=== PATIENT | female | born 1990 | race African-American/Black ===

== ENCOUNTER 2017-06-26 22:14 | Emergency (ER) | payer OTHER ==
[~2017-06-26] VITALS: Ht 154.9 cm; Wt 54.1 kg
[2017-06-26 22:17] VITALS: TEMP 36.8; Ht 154.9 cm; Wt 54.1 kg
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
[2017-06-26] MEDS ORDERED: KETOROLAC TROMETHAMINE 30 MG/ML VIAL IV STA (23:02)
[2017-06-26] MEDS ORDERED: CALC-20 PO (23:36)
[2017-06-26] MEDS ORDERED: CYAN100T6 PO (23:36)
[2017-06-26] MEDS ORDERED: MYCO500T4 PO ×2 (23:37)
[2017-06-26] MEDS ORDERED: HYDR200T5 PO (23:38)
[2017-06-26] MEDS ORDERED: METH8TAB5 PO (23:38)
[2017-06-26] MEDS ORDERED: IBUPROFEN 200 MG TAB PO STA (23:42)
[2017-06-26 23:50] LABS: BASO % 0.3 %; BASO ABS # 0.01 K/uL (0-0.2); EOS % 0.7 %; EOS ABS # 0.02 K/uL (0-0.5); HEMOGLOBIN 9.6 g/dL (12.0-16.0); IG# 0.01 K/uL (0.00-0.02); LYMPH % 28.4 %; LYMPH ABS # 0.83 K/uL (1.2-3.4); MEAN CELL VOLUME 77.5 fL (80-100); MEAN CORPUSCULAR HEMOGLOBIN 25.7 pg (25-34); MEAN CORPUSCULAR HGB CONC 33.1 g/dl (32-36); MEAN PLATELET VOLUME 10.3 fL (7.4-10.4); MONO % 13.7 %; NEUT % 56.6 %; NEUT ABS # 1.65 K/uL (1.4-6.5); PLATELET COUNT 218 K/uL (130-400); RED CELL DISTRIBUTION WIDTH CV 16.3 % (11.5-14.5); RED CELL DISTRIBUTION WIDTH SD 45.9 fL (36.4-46.3); WHITE BLOOD COUNT 2.92 K/uL (4.8-10.8)
[2017-06-27 00:10] LABS: ALBUMIN 3.2 gm/dl (3.4-5.0); ALT/SGPT 20 U/L (12-78); BLOOD UREA NITROGEN 5 mg/dl (7-18); CALCIUM 8.3 mg/dl (8.5-10.1); CARBON DIOXIDE 29 mmol/L (21-32); CREATININE 0.64 mg/dl (0.60-1.20); GLUCOSE 101 mg/dl (70-99); LIPASE 115 U/L (73-393); POTASSIUM 4.1 mmol/L (3.5-5.1); SODIUM 140 mmol/L (136-145)
[2017-06-27 00:13] LABS: ALKALINE PHOSPHATASE 101 U/L (45-117); AST/SGOT 19 U/L (15-37); TOTAL PROTEIN 6.7 gm/dl (6.4-8.2)
[2017-06-27 00:56] VITALS: BP 109/74; PULSE 62; O2SAT 99
--- NOTE | 2017-06-27 06:38 | DIAGNOSTIC IMAGING REPORT ---
CHEST ONE VIEW PORTABLE CLINICAL HISTORY: Atypical chest pain COMPARISON STUDY: No previous studies for comparison. FINDINGS: The cardiac and mediastinal contours are normal. There is no evidence of focal pulmonary consolidation. There is no evidence of failure. No pleural effusions are visualized.[ IMPRESSION: No active disease in the chest. Electronically signed by: Pete Martino M.D. 06/27/2017 6:37 AM Dictated Date/Time: 06/27/2017 6:36 AM
== END 2017-06-27 00:58 | disposition home or self-care (01) ==
LOC: C.EDB 22:14 → C.EDC 06-27 00:58
DX: R07.2 Precordial pain (principal); M94.0 Chondrocostal junction syndrome [Tietze]; V44.9XXA Unspecified car occupant injured in collision with heavy transport vehicle or bus in traffic accident, initial encounter; Y92.488 Other paved roadways as the place of occurrence of the external cause; M32.9 Systemic lupus erythematosus, unspecified

== ENCOUNTER 2017-12-19 13:16 | Emergency (ER) | payer OTHER ==
[~2017-12-19] VITALS: Ht 154.9 cm; Wt 50.3 kg
[~2017-12-19 13:16] MED LIST: CALC-20 PO; CYAN100T6 PO; HYDR200T5 PO; METH8TAB5 PO; MYCO500T4 PO; POT PHOSPHATE MONOBASIC W/ SOD TAB PO SCH
[2017-12-19 13:17] VITALS: Ht 154.9 cm; Wt 50.3 kg
[2017-12-19] MEDS ORDERED: SODIUM CHLORIDE 0.9% 1000ML 1,000 ML IV STA ×2 (13:46→14:56)
--- NOTE | 2017-12-19 13:54 | EMERGENCY ROOM VISIT NOTE ---
History Report prepared by Maycol: Vadim Montanez Under the Supervision of: Dr. Montserrat Daniels D.O. First contact with patient: 13:35 Chief Complaint: ILLNESS Stated Complaint: LUPUS FLARE History of Present Illness The patient is a 27 year old female who presents to the Emergency Room with complaints of constant generalized pain in her muscles and joints that began yesterday. Patient adds she has been vomiting and nauseas. Patient states she has had 4-5 episodes of vomiting. Past medical history includes Lupus, which she was diagnosed with 4 years ago. Patient states she is concerned about a possible Lupus flare which she states her symptoms feel similar to. She adds she has a history of Lupus flares. Patient states she takes 15mg of Prednisone for her Lupus and states her medication has been changed "up and down" before. She adds that stress can trigger her Lupus flares. She states she follows with Dr. 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 Patient adds she had fevers , chills, and urinary symptoms last week due to a kidney infection. She states these symptoms resolved after a 5-day course of Cipro BID. Patient states she typically takes Aleve for pain relief. Patient states she has a history of rashes on her arms and face. Patient denies a history of blood clots and kidney problems. She denies back pain, bowel symptoms, and hematemesis. Source of History: patient Onset: Yesterday Position: head, chest, arm (bilateral), leg (bilateral) Timing: constant Modifying Factors (Relieving): other (None) Associated Symptoms: + nausea, + vomiting, No fevers, No chills, No back pain, No urinary symptoms Note: Negative hematemesis and bowel symptoms. Review of Systems See HPI for pertinent positives & negatives. A total of 10 systems reviewed and were otherwise negative. Past Medical & Surgical Medical Problems: (1) Lupus (2) Pleurisy Family History Patient reports no known family medical history. Social History Smoking Status: Never Smoker Marital Status: single Occupation Status: student Current/Historical Medications Scheduled Calcium Carbonate-Vitamin D (Calcium 600 + D), 1 TAB PO AMPM Cephalexin (Keflex), 1 CAP PO BID Cyanocobalamin (Vitamin B12 100 Mcg), 100 MCG PO QAM Hydroxychloroquine Sulfate (Plaquenil), 200 MG PO BID Methylprednisolone (Methylprednisolone), 16 MG PO QAM Methylprednisolone (Medrol Dosepak), 1 PKT PO UD Mycophenolate Mofetil (Cellcept), 5 TABS PO QAM Mycophenolate Mofetil (Cellcept), 3 TABS PO HS Allergies Coded Allergies: No Known Allergies (Unverified , 06/26/17) Physical Exam Vital Signs Date Time Temp Pulse Resp B/P (MAP) Pulse Ox O2 Delivery O2 Flow Rate FiO2 12/19/17 18:46 37.1 71 16 97/57 100 12/19/17 17:30 71 16 97/57 100 Room Air 12/19/17 14:40 80 20 138/80 98 Room Air 12/19/17 13:17 37.1 84 18 143/77 99 Room Air Physical Exam GENERAL: alert, well appearing, well nourished, no distress, non-toxic EYE EXAM: normal conjunctiva, PERRL and EOM's grossly intact OROPHARYNX: no exudate, no erythema, lips, buccal mucosa, and tongue normal and mucous membranes are moist NECK: supple, no nuchal rigidity, no adenopathy, non-tender LUNGS: Clear to auscultation. Normal chest wall mechanics. No wheezes, rhonchi, or rales. HEART: no murmurs, S1 normal and S2 normal ABDOMEN: abdomen soft, non-tender, normo-active bowel sounds, no masses, no rebound or guarding. BACK: Back is symmetrical on inspection and there is no deformity, no midline tenderness, no CVA tenderness. SKIN: no malar rash and no bruising UPPER EXTREMITIES: upper extremities are grossly normal. No joint effusions. Full range of motion b/l. LOWER EXTREMITIES: No pitting edema. No joint effusions. Full range of motion b/ l. NEURO EXAM: Normal sensorium, cranial nerves II-XII grossly intact, normal speech, no gross weakness of arms, no gross weakness of legs. Medical Decision & Procedures ER Provider Diagnostic Interpretation: Radiology results have been interpreted by the radiologist and reviewed by me. CHEST ONE VIEW PORTABLE CLINICAL HISTORY: fever/chills dyspnea COMPARISON STUDY: 06/26/2017 FINDINGS: The bones soft tissues and hemidiaphragms are normal. The cardiomediastinal silhouette is normal. The lungs are clear. The pulmonary vasculature is normal. IMPRESSION: Negative chest. The above report was generated using voice recognition software. It may contain grammatical, syntax or spelling errors. Electronically signed by: Monster Edouard M.D. 12/19/2017 2:05 PM EXAMINATION: RENAL ULTRASOUND CLINICAL HISTORY: Left flank pain, urinary tract infection. COMPARISON STUDY: None FINDINGS: The right kidney measures 10.3 cm. The left kidney measures 10.1 cm. There is no evidence of hydronephrosis. There are no renal masses. No bladder masses are visualized. Neither ureteral jet was identified. IMPRESSION : Nonvisualization of the ureteral jets. Otherwise normal renal ultrasound Electronically signed by: Pete Martino M.D. 12/19/2017 6:07 PM Laboratory Results 12/19/17 13:48 Red Blood Count 4.49, Mean Corpuscular Volume 78.0, Mean Corpuscular Hemoglobin 25.8, Mean Corpuscular Hemoglobin Concent 33.1, Mean Platelet Volume 10.6, Neutrophils (%) (Auto) 42.0, Lymphocytes (%) (Auto) 38.5, Monocytes (%) (Auto) 18.3, Eosinophils (%) (Auto) 0.8, Basophils (%) (Auto) 0.0, Neutrophils # (Auto ) 1.10, Lymphocytes # (Auto) 1.01, Monocytes # (Auto) 0.48, Eosinophils # (Auto ) 0.02, Basophils # (Auto) 0.00 12/19/17 13:48 Test 12/19/17 13:48 12/19/17 16:21 White Blood Count 2.62 K/uL (4.8-10.8) Red Blood Count 4.49 M/uL (4.2-5.4) Hemoglobin 11.6 g/dL (12.0-16.0) Hematocrit 35.0 % (37-47) Mean Corpuscular Volume 78.0 fL (80-100) Mean Corpuscular Hemoglobin 25.8 pg (25-34) Mean Corpuscular Hemoglobin Concent 33.1 g/dl (32-36) Platelet Count 208 K/uL (130-400) Mean Platelet Volume 10.6 fL (7.4-10.4) Neutrophils (%) (Auto) 42.0 % Lymphocytes (%) (Auto) 38.5 % Monocytes (%) (Auto) 18.3 % Eosinophils (%) (Auto) 0.8 % Basophils (%) (Auto) 0.0 % Neutrophils # (Auto) 1.10 K/uL (1.4-6.5) Lymphocytes # (Auto) 1.01 K/uL (1.2-3.4) Monocytes # (Auto) 0.48 K/uL (0.11-0.59) Eosinophils # (Auto) 0.02 K/uL (0-0.5) Basophils # (Auto) 0.00 K/uL (0-0.2) RDW Standard Deviation 45.0 fL (36.4-46.3) RDW Coefficient of Variation 15.8 % (11.5-14.5) Immature Granulocyte % (Auto) 0.4 % Immature Granulocyte # (Auto) 0.01 K/uL (0.00-0.02) Nucleated RBC Absolute Count (auto) 0.02 K/uL (0-0) Nucleated Red Blood Cells % 0.8 % Prothrombin Time 10.4 SECONDS (9.0-12.0) Prothromb Time International Ratio 1.0 (0.9-1.1) Anion Gap 7.0 mmol/L (3-11) Est Creatinine Clear Calc Drug Dose 84.6 ml/min Estimated GFR () 125.5 Estimated GFR (Non- 108.3 BUN/Creatinine Ratio 11.3 (10-20) Calcium Level 8.9 mg/dl (8.5-10.1) Phosphorus Level 1.9 mg/dl (2.5-4.9) Magnesium Level 1.8 mg/dl (1.8-2.4) Total Bilirubin 0.5 mg/dl (0.2-1) Aspartate Amino Transf (AST/SGOT) 20 U/L (15-37) Alanine Aminotransferase (ALT/SGPT) 23 U/L (12-78) Alkaline Phosphatase 100 U/L (45-117) Total Creatine Kinase 187 U/L (26-192) Troponin I < 0.015 ng/ml (0-0.045) Total Protein 7.9 gm/dl (6.4-8.2) Albumin 4.2 gm/dl (3.4-5.0) Globulin 3.7 gm/dl (2.5-4.0) Albumin/Globulin Ratio 1.1 (0.9-2) Lipase 84 U/L (73-393) Thyroid Stimulating Hormone (TSH) 0.531 uIu/ml (0.300-4.500) Chemistry Specimen Hemolysis Urine Color YELLOW Urine Appearance TURBID (CLEAR) Urine pH 6.5 (4.5-7.5) Urine Specific [place] 1.018 (1.000-1.030) Urine Protein 1+ (NEG) Urine Glucose (UA) NEG (NEG) Urine Ketones TRACE (NEG) Urine Occult Blood TRACE (NEG) Urine Nitrite NEG (NEG) Urine Bilirubin NEG (NEG) Urine Urobilinogen NEG (NEG) Urine Leukocyte Esterase LARGE (NEG) Urine WBC (Auto) >30 /hpf (0-5) Urine RBC (Auto) 5-10 /hpf (0-4) Urine Hyaline Casts (Auto) 1-5 /lpf (0-5) Urine Epithelial Cells (Auto) >30 /lpf (0-5) Urine Bacteria (Auto) NEG (NEG) Laboratory results per my review. Medications Administered Medications (Trade) Dose Ordered Sig/Dk Route Start Time Stop Time Status Last Admin Dose Admin Sodium Chloride 1,000 ml @ 999 mls/hr Q1H1M STAT IV 12/19/17 13:46 12/19/17 14:46 DC 12/19/17 13:46 999 MLS/HR Fentanyl Citrate (Fentanyl Inj) 50 mcg NOW STAT IV 12/19/17 14:21 12/19/17 14:22 DC 12/19/17 14:39 50 MCG Sodium Chloride 1,000 ml @ 999 mls/hr Q1H1M STAT IV 12/19/17 14:56 12/19/17 15:56 DC 12/19/17 15:59 999 MLS/HR Acetaminophen (Tylenol Tab) 1,000 mg NOW STAT PO 12/19/17 14:58 12/19/17 14:59 DC 12/19/17 16:00 1,000 MG Magnesium Oxide (Mag-Ox Tab) 400 mg ONE ONCE PO 12/19/17 16:00 12/19/17 16:01 DC 12/19/17 16:01 400 MG Potassium/ Phosphorus/Sodium (Phospha 250 Neutral 155-852-130 Mg) 1 tab ONE ONCE PO 12/19/17 16:00 12/19/17 16:01 DC 12/19/17 16:10 1 TAB Ceftriaxone Sodium (Rocephin Inj) 1 gm NOW STAT IV 12/19/17 17:14 12/19/17 17:16 DC 12/19/17 17:35 1 GM Methylprednisolone (Medrol Tab) 24 mg NOW STAT PO 12/19/17 17:16 12/19/17 17:17 DC 12/19/17 18:10 24 MG Ketorolac Tromethamine (Toradol Inj) 15 mg NOW STAT IV 12/19/17 17:28 12/19/17 17:29 DC 12/19/17 18:11 15 MG Hydromorphone HCl (Dilaudid Inj) 0.5 mg NOW STAT IV 12/19/17 18:14 12/19/17 18:15 DC 12/19/17 18:23 0.5 MG Cephalexin Monohydrate (Keflex 500MG Home Pack) 1 homepack NOW ONCE PO 12/19/17 18:15 12/19/17 18:16 DC 12/19/17 18:24 1 HOMEPACK Diphenhydramine HCl (Benadryl Inj) 25 mg NOW STAT IV 12/19/17 18:58 12/19/17 18:59 DC 12/19/17 19:05 25 MG ECG Per My Interpretation Indication: weakness Rate (beats per minute): 85 Rhythm: normal sinus Findings: no acute ischemic change, no ectopy, other (Normal axis/intervals, ) ED Course 1335: The patient was evaluated in room B12B. A complete history and physical exam was performed. 1346: Sodium Chloride 1000 ml @ 999 mls/hr IV 1421: Fentanyl Inj 50mcg IV 1456: Sodium Chloride 1000 ml @ 999 mls/hr IV 1458: Tylenol Tab 1000mg 1552: I reevaluated the patient and updated her on her findings. 1600: Potassium/Phosphorus/Sodium 1 tab PO and Magnesium Oxide 400mg PO 1714: Rocephin Inj 1gm IV 1716: Medrol Tab 24mg 1728: Toradol Inj 15mg IV 1815: Dilaudid Inj 0.5mg IV and Cephalexin Monohydrate 1 homepack PO 1825: Upon reevaluation, the patient is feeling better. I discussed the findings and the treatment plan with the patient. She verbalizes agreement and understanding. She was discharged home. Medical Decision Differential diagnosis: Etiologies such as metabolic, infection, hypo/hyperglycemia, electrolyte abnormalities, cardiac sources, intracerebral event, toxicologic, neurologic, as well as others were entertained. Concern inpatient for possible lupus flare. Labs reassuring. UA suboptimal but given recent UTI, sent for culture and renal ultrasound performed as a precaution. Patient covered with IV Rocephin as a precaution and started on Keflex until culture could be resulted. Patient with no further symptoms, and felt improved after her course of Cipro last week. Given patient's medications though she is slightly immunocompromised and at risk for recurrent infection, refractory infection, or pyelonephritis. I do not suspect obstructive pathology contributing to this. No evidence of bacteremia/sepsis. Patient's hypophosphatemia was repleted and patient sent home with additional supplementation. Discussed with patient recommendations by rheumatology and need for close follow-up with him tomorrow. Patient hydrated here, given several pain medications. While no abnormalities were noted in the PDM P, patient stated the only pain medication that works for her is Dilaudid. Discussed with her that rheumatology did not recommend additional home pain medication. Patient well-appearing at discharge, vital signs stable throughout. Patient with petite body habitus, and the low blood pressure noted is likely normal for her despite hydration. 1 of these was obtained while patient was laying on her side. This could have contributed also. [place] Drug Monitoring Program Search Results: no issues identified Medication Reconcilliation Current Medication List: was personally reviewed by me Blood Pressure Screening Patient's blood pressure: Elevated blood pressure Blood pressure disposition: Elevated BP felt to be situational Consults Time Called: 1534 Consulting Physician: Dr. Laurent Villafana [employer] Returned Call: 1548 I reviewed the patient's case with Dr. Mancilla, who is covering for Dr. Hendricks. States she typically has leukopenia, the last 2 counts he has in her record are 3.3 and 2.9. He recommends discharging the patient on a Medrol Dosepak, no other pain medication, and to have her call Dr. Hendricks's office tomorrow morning. Additional Consults: Time Called: 1552 Consulted Physician: Dr. Eladio Villafana [employer] Operator Returned Call: 1559 Additional Comments: I reviewed the patient's case with Dr. Hendricks. She is agreeable with the plan suggested by Dr. Mancilla. Impression Primary Impression: Myalgia Additional Impressions: Arthralgia Lupus UTI (urinary tract infection) Scribe Attestation The scribe's documentation has been prepared under my direction and personally reviewed by me in its entirety. I confirm that the note above accurately reflects all work, treatment, procedures, and medical decision making performed by me. Departure Information Dispostion Home / Self-Care Prescriptions Cephalexin (KEFLEX) 500 Mg Cap 1 CAP PO BID for 7 Days, #14 CAP Prov: Montserrat Daniels, DO 12/19/17 Methylprednisolone (MEDROL DOSEPAK) 4 Mg Joby 1 PKT PO UD for 6 Days, #1 PKT Prov: Montserrat Daniels, DO 12/19/17 Referrals No Doctor, Assigned (PCP) Patient Instructions My [facility] Additional Instructions Please call and discuss all of your symptoms as well as her possible lupus flare with Dr. Hendricks tomorrow. Please discuss with them also that your urine did appear possibly infected again although was not an optimal specimen. This will be sent for cultures and will take 48 hours to result. If you have any new or concerning symptoms, please return the emergency room. You may use Tylenol or ibuprofen as needed for pain. Please drink plenty fluids to stay well-hydrated. Do not take ibuprofen on an empty stomach. Problem Qualifiers Additional Impressions: Arthralgia Joint pain location: unspecified Qualified Codes: M25.50 - Pain in unspecified joint Lupus Lupus erythematosus form: unspecified Qualified Codes: L93.0 - Discoid lupus erythematosus UTI (urinary tract infection) Urinary tract infection type: acute cystitis Hematuria presence: with hematuria Qualified Codes: N30.01 - Acute cystitis with hematuria
[2017-12-19 14:05] LABS: EOS % 0.8 %; EOS ABS # 0.02 K/uL (0-0.5); HEMOGLOBIN 11.6 g/dL (12.0-16.0); IG# 0.01 K/uL (0.00-0.02); LYMPH % 38.5 %; LYMPH ABS # 1.01 K/uL (1.2-3.4); MEAN CORPUSCULAR HEMOGLOBIN 25.8 pg (25-34); MEAN CORPUSCULAR HGB CONC 33.1 g/dl (32-36); MEAN PLATELET VOLUME 10.6 fL (7.4-10.4); MONO % 18.3 %; MONO ABS # 0.48 K/uL (0.11-0.59); NUCLEATED RED BLOOD CELL ABS 0.02 K/uL (0-0); PLATELET COUNT 208 K/uL (130-400); RED CELL DISTRIBUTION WIDTH CV 15.8 % (11.5-14.5); WHITE BLOOD COUNT 2.62 K/uL (4.8-10.8)
--- NOTE | 2017-12-19 14:06 | DIAGNOSTIC IMAGING REPORT ---
CHEST ONE VIEW PORTABLE CLINICAL HISTORY: fever/chills dyspnea COMPARISON STUDY: 06/26/2017 FINDINGS: The bones soft tissues and hemidiaphragms are normal. The cardiomediastinal silhouette is normal. The lungs are clear. The pulmonary vasculature is normal. IMPRESSION: Negative chest. The above report was generated using voice recognition software. It may contain grammatical, syntax or spelling errors. Electronically signed by: Monster Edouard M.D. 12/19/2017 2:05 PM Dictated Date/Time: 12/19/2017 2:05 PM
[2017-12-19] MEDS ORDERED: FENTANYL CITRATE INJ 50 MCG/1 ML 2 ML VIAL IV STA (14:21)
[2017-12-19 14:24] LABS: ALBUMIN 4.2 gm/dl (3.4-5.0); ALT/SGPT 23 U/L (12-78); AST/SGOT 20 U/L (15-37); BLOOD UREA NITROGEN 9 mg/dl (7-18); CALCIUM 8.9 mg/dl (8.5-10.1); CARBON DIOXIDE 26 mmol/L (21-32); CREATININE 0.76 mg/dl (0.60-1.20); GLUCOSE 95 mg/dl (70-99); LIPASE 84 U/L (73-393); POTASSIUM 4.1 mmol/L (3.5-5.1); SODIUM 138 mmol/L (136-145)
[2017-12-19 14:31] LABS: ALKALINE PHOSPHATASE 100 U/L (45-117); PHOSPHORUS 1.9 mg/dl (2.5-4.9); TOTAL PROTEIN 7.9 gm/dl (6.4-8.2)
[2017-12-19] MEDS ORDERED: ACETAMINOPHEN 500 MG TAB PO STA (14:58)
[2017-12-19] MEDS ORDERED: POT PHOSPHATE MONOBASIC W/ SOD TAB PO ONE (16:00)
[2017-12-19] MEDS ORDERED: MAGNESIUM OXIDE 400 MG TAB PO ONE (16:00)
[2017-12-19] MEDS ORDERED: CEFTRIAXONE SOD INJ 1 GM ADDVIAL IV STA (17:14)
[2017-12-19] MEDS ORDERED: METHYLPREDNISOLONE 16 MG TAB PO STA (17:16)
[2017-12-19] MEDS ORDERED: KETOROLAC TROMETHAMINE 30 MG/ML VIAL IV STA (17:28)
--- NOTE | 2017-12-19 18:08 | DIAGNOSTIC IMAGING REPORT ---
EXAMINATION: RENAL ULTRASOUND CLINICAL HISTORY: Left flank pain, urinary tract infection. COMPARISON STUDY: None FINDINGS: The right kidney measures 10.3 cm. The left kidney measures 10.1 cm. There is no evidence of hydronephrosis. There are no renal masses. No bladder masses are visualized. Neither ureteral jet was identified. IMPRESSION : Nonvisualization of the ureteral jets. Otherwise normal renal ultrasound Electronically signed by: Pete Martino M.D. 12/19/2017 6:07 PM Dictated Date/Time: 12/19/2017 6:06 PM
[2017-12-19] MEDS ORDERED: HYDROmorphone INJ 0.5 MG/0.5 ML SYR IV STA (18:14)
[2017-12-19] MEDS ORDERED: CEPHALEXIN 500MG HOME PACK 1 EA BTL PO ONE (18:15)
[2017-12-19] MEDS ORDERED: CEPH-571 PO (18:24)
[2017-12-19] MEDS ORDERED: METH4PAK PO (18:24)
[2017-12-19 18:46] VITALS: BP 97/57; PULSE 71; TEMP 37.1; O2SAT 100
[2017-12-19] MEDS ORDERED: DiphenhydrAMINE HCL 50 MG/ML VIAL IV STA (18:58)
== END 2017-12-19 18:47 | disposition home or self-care (01) ==
LOC: C.EDB 13:17
DX: M79.1 Myalgia (principal); M25.50 Pain in unspecified joint; L93.0 Discoid lupus erythematosus; N30.01 Acute cystitis with hematuria; E83.39 Other disorders of phosphorus metabolism; Z79.52 Long term (current) use of systemic steroids